=== PATIENT | female | born 1985 | race American Indian/Alaskan Native ===

== ENCOUNTER 2020-04-01 16:06 | Emergency (ER) | payer SELFPAY ==
[~2020-04-01] VITALS: Ht 170.2 cm; Wt 86.2 kg
[2020-04-01] MEDS ORDERED: Prinivil10 MG PO (16:16)
[2020-04-01] MEDS ORDERED: NIFE60ER PO (16:16)
[2020-04-01] MEDS ORDERED: Toprol Xl50 MG PO (16:16)
[2020-04-01] MEDS ORDERED: ASPI81CH (16:17)
[2020-04-01] MEDS ORDERED: CLON.1 PO (16:17)
[2020-04-01] MEDS ORDERED: BASAGLAR K100 UNIT/1 (16:18)
[2020-04-01] MEDS ORDERED: FLUT1DIS2 (16:18)
[2020-04-01] MEDS ORDERED: FENO160 PO (16:18)
[2020-04-01] MEDS ORDERED: LEVEMIR100 UNIT/1 (16:18)
[2020-04-01] MEDS ORDERED: HUMALOG100 UNIT/1 (16:18)
[2020-04-01] MEDS ORDERED: NOVOLOG100 UNIT/3 (16:19)
[2020-04-01] MEDS ORDERED: SEVEC800 (16:20)
== END 2020-04-01 16:23 | disposition home or self-care (01) ==
LOC: ER 16:06
DX: Z76.0 Encounter for issue of repeat prescription (principal); R03.0 Elevated blood-pressure reading, without diagnosis of hypertension; Z99.2 Dependence on renal dialysis; Z79.899 Other long term (current) drug therapy; Z79.82 Long term (current) use of aspirin; Z79.4 Long term (current) use of insulin
CPT/HCPCS: 99281